=== PATIENT | female | born 1975 | race Caucasian/White ===

== ENCOUNTER 2023-01-21 09:10 | Emergency (ER) | payer OTHER ==
[2023-01-21 09:19] VITALS: BP 108/69; O2SAT 97
--- NOTE | 2023-01-21 10:15 | ED Physician Documentation ---
PD HPI URI - Stated complaint Stated Complaint: COUGH - Chief complaint Chief Complaint: Resp - History obtained from History obtained from: Patient, Family - History of Present Illness Timing - onset: How many days ago (5) Timing duration: Days (5) Timing details: Gradual onset, Still present Associated symptoms: Ear pain, Nasal congestion, Dry cough Contributing factors: Immunocompromised (takes stelara for chrons) Improves by: Rest, Medication Worsened by: Activity Similar symptoms before: Diagnosis (laryngitis) Recently seen: Not recently seen - Additional information Additional information: 47-year-old female with a history of Crohn's disease who is on Stelara has developed a cough and congestion about 5 days ago. She is immunized against COVID she has had COVID. 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 She is wanting to get her voice back and she says that even today is better than yesterday. She denies any overt shortness of breath or fever. Review of Systems Constitutional: denies: Fever Eyes: denies: Decreased vision Ears: reports: Ear pain Nose: reports: Rhinorrhea / runny nose, Congestion Throat: reports: Sore throat (scratchy), Other (lost voice) Cardiac: denies: Chest pain / pressure, Palpitations Respiratory: reports: Cough. denies: Dyspnea GI: denies: Vomiting, Diarrhea : denies: Dysuria, Frequency Musculoskeletal: denies: Neck pain, Back pain, Extremity pain PD PAST MEDICAL HISTORY - Past Medical History Past Medical History: Yes GI: Crohn's disease - Past Surgical History Past Surgical History: Yes - Allergies Allergies/Adverse Reactions: Allergies Allergy/AdvReac Type Severity Reaction Status Date / Time Penicillins Allergy Rash Verified 01/21/23 09:17 - Social History Does the pt smoke?: No Smoking Status: Never smoker Does the pt drink ETOH?: No Does the pt have substance abuse?: No - Immunizations Immunizations are current?: Yes - POLST Patient has POLST: No PD ED PE NORMAL - Vitals Vital signs reviewed: Yes (normal ) - General General: Alert and oriented X 3, No acute distress, Well developed/nourished - HEENT HEENT: Atraumatic, PERRL, EOMI, Other (left TM normal minimal inflamation to the right along the umbo) - Neck Neck: Supple, no meningeal sign, No bony TTP - Cardiac Cardiac: RRR, No murmur - Respiratory Respiratory: No respiratory distress, Clear bilaterally - Abdomen Abdomen: Soft, Non tender - Back Back: No CVA TTP, No spinal TTP - Derm Derm: Normal color, Warm and dry, No rash - Extremities Extremities: No deformity, No edema - Neuro Neuro: Alert and oriented X 3, 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, No motor deficit, No sensory deficit, Normal speech Eye Opening: Spontaneous Motor: Obeys Commands Verbal: Oriented GCS Score: 15 - Psych Psych: Normal mood, Normal affect Results - Vitals Vitals: Vital Signs - 24 hr 01/21/23 09:14 Temperature 36.6 C Heart Rate 80 Respiratory 16 Rate Blood Pressure 108/69 O2 Saturation 97 Oxygen O2 Source Room air PD Medical Decision Making - ED course Complexity details: reviewed results, considered differential, d/w patient, d/w family ED course: 47-year-old female with a cough and congestion has improvement in her symptoms without specific treatment and she is here because she has repeatedly lost her voice. She is given a dose of dexamethasone for viral URI and we are expecting her to resolve her illness and regain her voice within the next 2 days. Departure - Departure Disposition: 01 Home, Self Care Clinical Impression: Viral URI with cough Condition: Stable Instructions: ED Upper Resp Infec No Abx Tx Follow-Up: KEELEY MAHAN, PIO, CNM [Primary Care Provider] - Comments: Ghada, today it looks like you have improving symptoms and we are not finding evidence of a complicating bacterial infection. Today we have given you a dose of dexamethasone and we expect this to have improvement in your overall feeling as well as resolution of your lost voice. Our expectations are continued improvement and resolution of your symptoms in the next several days. We are not expecting cough to be persistent. A persistent cough is a reason to follow- up with your primary care doctor. Forms: PCP List Discharge Date/Time: 01/21/23 10:39
[2023-01-21] MEDS ORDERED: DEXAMETHASONE 10 MG/ML VIAL PO STA (10:19)
[2023-01-21] MEDS ORDERED: CHERRY SYRUP 10 ML UDC PO ONE (10:19)
== END 2023-01-21 10:39 | disposition home or self-care (01) ==
LOC: ED 09:10
DX: J06.9 Acute upper respiratory infection, unspecified (principal)
CPT/HCPCS: 99282; 99283; A9270